=== PATIENT | male | born 1965 | race Caucasian/White ===

== ENCOUNTER 2017-08-05 10:57 | Day surgery (SDC) | payer OTHER ==
[~2017-08-05 10:57] MED LIST: ACETAMINOPHEN 1000 MG/100 ML IVPB; CEFAZOLIN 1 GM INJ; CEFAZOLIN 1 GM/50 ML (PMX) 50 ML IVPB; EPHEDrine SULFATE 50 MG/5 ML SYG; SOD CHLORIDE 0.9% 1,000 ML IV
[2017-08-05 12:52] LABS: ADD MAN DIFF? NO
[2017-08-05 12:54] LABS: WHITE BLOOD COUNT 5.9 10^3/ul (4.8-10.8)
[2017-08-05 12:54] LABS: BASOPHIL # 0.1 10^3/ul (0.0-0.1); BASOPHILS % 0.8 % (0.0-2.0); EOSINOPHILS # 0.3 10^3/ul (0.0-0.5); EOSINOPHILS % 4.6 % (0.0-7.0); HEMATOCRIT 41.8 % (42.0-52.0); HEMOGLOBIN 14.1 g/dl (14.0-18.0); LYMPHOCYTES # 1.9 10^3/ul (0.8-2.9); LYMPHOCYTES % 31.8 % (15.0-51.0); MEAN CORPUSCULAR HEMOGLOBIN 33.4 pg (29.0-33.0); MEAN CORPUSCULAR HGB CONC 33.7 g/dl (32.0-37.0); MEAN CORPUSCULAR VOLUME 99.1 fl (82.0-101.0); MEAN PLATELET VOLUME 9.9 fl (7.4-10.4); MONOCYTE # 0.8 10^3/ul (0.3-0.9); MONOCYTES % 13.5 % (0.0-11.0); NEUTROPHIL # 2.9 10^3/ul (1.6-7.5); NEUTROPHILS % 49.1 % (39.0-77.0); PLATELET COUNT 142 10^3/UL (140-415); RED BLOOD COUNT 4.22 10^6/ul (4.70-6.10)
[2017-08-05 13:16] LABS: ALANINE AMINOTRANSFERASE 37 IU/L (13-69); ALBUMIN 4.9 g/dl (3.3-4.9); ALBUMIN/GLOBULIN RATIO 1.36; ALKALINE PHOSPHATASE 61 IU/L (42-121); ANION GAP 19 (8-16); ASPARTATE AMINO TRANSFERASE 30 IU/L (15-46); BILIRUBIN,INDIRECT 0.4 mg/dl (0-1.1); BILIRUBIN,TOTAL 0.4 mg/dl (0.2-1.3); CARBON DIOXIDE 25 mmol/L (21-31); CHLORIDE 106 mmol/L (97-110); GLUCOSE 93 mg/dl (70-220); TOTAL PROTEIN 8.5 g/dl (6.1-8.1)
[2017-08-05 13:24] LABS: BLOOD UREA NITROGEN 6 mg/dl (7-20); CALCIUM 9.3 mg/dl (8.4-10.2); POTASSIUM 4.2 mmol/L (3.5-5.1); SODIUM 146 mmol/L (135-144)
[2017-08-05 13:30] LABS: INR 1.03; PROTIME 13.6 Sec (11.9-14.9); PT RATIO 1.1
[2017-08-05 13:39] LABS: PARTIAL THROMBOPLASTIN TIME 40.9 Sec (25.0-35.0)
[2017-08-05] MEDS ORDERED: PROPOFOL 20 ML (14:30)
[2017-08-05] MEDS ORDERED: LIDOCAINE 2% (SDV) 5 ML INJ (14:30)
[2017-08-05] MEDS ORDERED: MIDAZOLAM 1 MG/ML 2 ML INJ (14:30)
[2017-08-05] MEDS ORDERED: ROCURONIUM 50 MG INJ (14:31)
[2017-08-05] MEDS ORDERED: FENTAnyl 50 MCG/ML VIAL (14:31)
[2017-08-05] MEDS ORDERED: SUCCINYLCHOLINE CHLORIDE 100 MG/5 ML SYG IV (14:31)
[2017-08-05] MEDS ORDERED: ROPIVACAINE 0.5 % 30 ML VIAL (14:32)
[2017-08-05] MEDS ORDERED: ONDANSETRON 4 MG INJ (15:07)
[2017-08-05] MEDS ORDERED: DEXAMETHASONE 4 MG/ML 1 ML INJ (15:07)
[2017-08-05] MEDS ORDERED: SUGAMMADEX SODIUM 200 MG/2 ML VIAL IV ×2 (15:07→15:21)
[2017-08-05] MEDS: BUPIVACAINE 0.25% (MPF) 30 ML INJ (15:13)
[2017-08-05] MEDS ORDERED: KETOROLAC 30 MG INJ (15:21)
[2017-08-05] MEDS ORDERED: HYDROmorphONE (0.2 MG/ML) 10ML SYG IV ×3 (15:34→16:00)
[2017-08-05] MEDS: HYDROmorphONE (0.2 MG/ML) 10ML SYG IV (15:50)
[2017-08-05] MEDS ORDERED: MEPERIDINE 25 MG INJ IV (16:00)
[2017-08-05] MEDS ORDERED: ONDANSETRON 4 MG INJ IV (16:00)
[2017-08-05] MEDS ORDERED: OXYCODONE/ACETAMINOPHEN (5/325) TAB PO ×2 (16:00)
[2017-08-05] MEDS ORDERED: DIPHENHYDRAMINE 50 MG INJ IV (16:00)
[2017-08-05] MEDS ORDERED: FENTAnyl 50 MCG/ML VIAL IV ×3 (16:00)
[2017-08-05] MEDS ORDERED: hydrALAzine 20 MG INJ IV (16:00)
[2017-08-05] MEDS ORDERED: PROCHLORPERAZINE 10 MG INJ IV (16:00)
[2017-08-05] MEDS ORDERED: LABETALOL HCL 20MG INJ IV (16:00)
[2017-08-05] MEDS: HYDROCODONE/APAP (5/325) TAB PO (17:18)
== END 2017-08-05 17:55 | disposition home or self-care (01) ==
LOC: SDS 10:57
DX: K40.91 Unilateral inguinal hernia, without obstruction or gangrene, recurrent (principal)
CPT/HCPCS: 49520; 71045; 80053; 85025; 85610; 85730; 93005